=== PATIENT | female | born 1985 | race Caucasian/White ===

== ENCOUNTER 2016-05-27 14:56 | Emergency (ER) | payer OTHER ==
[2016-05-27 15:14] VITALS: BP 143/88
[2016-05-27] MEDS ORDERED: TORADOL IM ONE (15:48)
[2016-05-27] MEDS ORDERED: DECADRON IM ONE (15:48)
--- NOTE | 2016-05-27 15:53 | PROVIDER DOCUMENTATION ---
HPI-Musculoskeletal Pain/Inj - GENERAL Chief Complaint: Neck Pain Stated Complaint: NECK PAIN/STIFFNESS Time Seen by Provider: 05/27/16 15:20 Source: patient - HX OF PRESENT ILLNESS-MUSKULOSKELTAL Nature of Presenting Problem: 31 y/o WF c/o R sided neck pain x 3 days. 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 States it has gotten very stiff and painful since. States previous injury to the area one month ago. Denies any numbness/tingling, trauma. Pt states sinusitis in last 30 days and still has some congestion- is not using nasal spray. Review of Systems - Adult - REVIEW OF SYSTEMS - ADULT Constitutional: reports: no symptoms reported. denies: chills, fever Eyes: reports: no symptoms reported. denies: blurred vision, double vision Ears, Nose, Mouth & Throat: reports: no symptoms reported. denies: ear pain, nose pain Cardiovascular: reports: no symptoms reported. denies: chest pain, palpitations Respiratory: reports: no symptoms reported. denies: dyspnea on exertion, shortness of breath Gastrointestinal: reports: no symptoms reported. denies: abdominal pain, nausea , vomiting Genitourinary: reports: no symptoms reported. denies: dysuria, frequency Musculoskeletal: reports: see HPI, back pain, neck pain. denies: joint pain, joint swelling Integumentary: reports: no symptoms reported. denies: nail changes, rash Neurological: reports: no symptoms reported. denies: numbness, paresthesia Psychiatric: reports: no symptoms reported Endocrine: reports: no symptoms reported. denies: cold intolerance, heat intolerance Hematologic/Lymphatic: reports: no symptoms reported. denies: easy bruising, prolonged bleeding Allergic/Immunologic: reports: no symptoms reported All Other Systems: Reviewed and Negative Past History - Adult - PAST MEDICAL HISTORY-ADULT Review of Records: reports: Nursing Assessment Review, Medications Reviewed Physical Exam-Injury Related - Physical Exam-Injury Related Initial Vital Signs Reviewed: Yes General Appearance: alert, mild distress Eyes: pink conjunctivae Head, Ears, Nose, Mouth & Throat: normocephalic/atraumatic, moist mucous membranes. negative: frontal tenderness, maxillary tenderness Neck: normal inspection, limited range of motion, tender lateral (lateral to Cspine on R musculature). negative: C-spine tenderness Respiratory: lungs clear, normal breath sounds. negative: crackles, rales, rhonchi, stridor, wheezing Cardiovascular: regular rate, rhythm. negative: bradycardia, tachycardia Peripheral Pulses: radial (R): 2+, radial (L): 2+ Back Exam: no vertebral tenderness, other (TTP R trapezius) Extremity: normal inspection, normal capillary refill. negative: abnormal NV exam, pulse deficit Integumentary: normal color, warm/dry Neurologic: negative: aphasia Psych/Mental Status: AL, normal mood/affect, normal thought content, normal thought process, oriented x 3 Departure - Departure Time of Disposition Order: 15:51 DIAGNOSIS: Sinus congestion Neck muscle strain Qualifiers: Encounter type: initial encounter Qualified Code(s): S16.1XXA - Strain of muscle, fascia and tendon at neck level, initial encounter Trapezius muscle strain Qualifiers: Encounter type: initial encounter Laterality: right Qualified Code(s): S46.811A - Strain of other muscles, fascia and tendons at shoulder and upper arm level, right arm, initial encounter Disposition: HOME 01 Certified Medical Emergency: Emergent Condition: Stable Additional Instructions: Take medications as directed. Heat as needed. Follow up with specialist in 3- 5 days if symptoms persist. ED Follow Up Instructions: You have been treated by a care provider in the Emergency Department. These instructions are being provided to you so you can have an understanding of how to care for yourself upon discharge. Upon discharge from the Emergency Department, you are responsible for making arrangements for follow-up care by a physician of your choice. Take all prescribed medications as directed. Return to the Emergency Department immediately for any new or worsening symptoms. You may call the Physician Referral phone number at [phone] to obtain a list of Physicians who are taking new patients. Prescriptions: Fluticasone 50 Mcg Nasal [place] [Flonase] 1 spray SUSHMA DAILY #1 bottle Famotidine [Pepcid] 20 mg PO DAILY #20 tablet Methocarbamol [Robaxin] 500 mg PO BID #30 tablet Ketorolac [Toradol] 10 mg PO Q6H PRN PRN #30 tablet PRN Reason: Pain Referrals: Eugenio Pimentel MD [Primary Care Provider] - Attestation - Physician/ Mid-level Attestation Patient care was provided by Mid-level provider ([employer] ADMINISTRATOR/PA):: Yes Mid-level provider:: Hailey Puentes Mid-level documentation review:: The Mid-level provider documentation, treatment plan and medical decision making was reviewed by the physician who agrees with all treatment and medical decision making by the MLP.
== END 2016-05-27 16:20 | disposition home or self-care (01) ==
LOC: ED 14:56
DX: S16.1XXA Strain of muscle, fascia and tendon at neck level, initial encounter (principal); S46.811A Strain of other muscles, fascia and tendons at shoulder and upper arm level, right arm, initial encounter; R09.81 Nasal congestion; M54.2 Cervicalgia; M43.6 Torticollis; M54.6 Pain in thoracic spine; X58.XXXA Exposure to other specified factors, initial encounter
CPT/HCPCS: 96372; J1885